=== PATIENT | female | born 1980 | race Caucasian/White ===

== ENCOUNTER 2016-10-24 17:17 | Emergency (ER) | payer BC ==
[2016-10-24 17:27] VITALS: BP 133/86
--- NOTE | 2016-10-24 19:10 | EDM.PDOC ---
ED HPI GENERAL MEDICAL PROBLEM - General Chief Complaint: Eye Problems Stated Complaint: BLURRED VISION Time Seen by Provider: 10/24/16 17:46 Source of Information: Reports: Patient, RN Notes Reviewed - History of Present Illness INITIAL COMMENTS - FREE TEXT/NARRATIVE: 35 or lady comes in with visual difficulty. Dates her vision has been "blurry" yesterday and today, especially today. She did have difficulty with abdominal pain about 5 or 6 days ago, diagnosed with diverticulitis. She's been on an antibiotic and also on prednisone for that. She states she normally does not get headaches. Take with moderately severe yesterday, mild today. 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 There's been no mattering or crusting of either eye. Denies nasal or sinus congestion. No sore throat. She denies major neck discomfort, back pain, chest pain or difficulty breathing. Also no peripheral neurologic type symptoms. Headache Pain Score (Numeric/FACES): 1 - Related Data Allergies Allergy/AdvReac Type Severity Reaction Status Date / Time cefdinir Allergy Rash Verified 04/01/16 21:07 morphine Allergy Rash Verified 04/01/16 21:07 Penicillins Allergy Rash Verified 10/24/16 17:22 Home Meds: Home Meds Lisinopril 10 mg PO DAILY 08/20/15 [History] Esomeprazole Magnesium [Nexium 24Hr] 22.3 mg PO DAILY 04/01/16 [History] ALPRAZolam [Alprazolam] 10/24/16 [History] Ciprofloxacin HCl [Cipro] 10/24/16 [History] FLUoxetine HCl [Fluoxetine HCl] 10/24/16 [History] predniSONE [predniSONE] 10/24/16 [History] Past Medical History HEENT History: Reports: Allergic Rhinitis Cardiovascular History: Reports: Hypertension Respiratory History: Reports: Asthma Gastrointestinal History: Reports: Chronic Constipation, Diverticulosis, GERD, Hiatal Hernia, Other (See Below) Other Gastrointestinal History: bloating, gastric ulcer, nausea/vomiting Genitourinary History: Reports: Renal Calculus [employer] History: Reports: Endometrial Ablation, Musculoskeletal History: Reports: Fracture Other Musculoskeletal History: wrist bilat Neurological History: Reports: Migraines Psychiatric History: Reports: Anxiety, Depression - Past Surgical History Female Surgical History: Reports: Section, Endometrial Ablation Social & Family History - Family History Family Medical History: Noncontributory Cardiac: Reports: CAD, [place] Other Cardiac Family History: grandfather - Tobacco Use Smoking Status *Q: Never Smoker Years of Tobacco use: 10 Month Tobacco Last Used: February 2016 - Caffeine Use Caffeine Use: - Alcohol Use Days Per Week of Alcohol Use: 0 - Recreational Drug Use Recreational Drug Use: No Drug Use in Last 12 Months: No ED ROS GENERAL - Review of Systems Review Of Systems: See Below Constitutional: Denies: Fever, Chills HEENT: Reports: Vision Change (vision has been blurry yesterday and today, worse today). Denies: Sinus Problem, Throat Pain Respiratory: Denies: Shortness of Breath, Wheezing Cardiovascular: Denies: Chest Pain GI/Abdominal: Denies: Abdominal Pain, Nausea, Vomiting Musculoskeletal: Reports: No Symptoms Skin: Reports: No Symptoms. Denies: Rash Neurological: Reports: Dizziness (mild), Headache (mild, off and on for the last few days, worse yesterday) ED EXAM GENERAL W FULL EYE - Physical Exam Exam: See Below General Appearance: Alert, No Apparent Distress Eye Exam: Bilateral Eye: EOMI, PERRL Visual Acuity (R) 20/: 100 Visual Acuity (L) 20/: 50 Eyelids: Bilateral: Normal Appearance Conjunctiva & Sclera: Bilateral: Normal Appearance Cornea Exam: Bilateral: Normal Appearance Extraocular Movements: Bilateral: Intact Pupillary Size: Bilateral: 5 mm Pupillary Reaction: Bilateral: Brisk Anterior Chamber: Bilateral: Normal Appearance Ears: Normal External Exam, Normal TMs Nose: Normal Inspection Throat/Mouth: Normal Inspection, Normal Oropharynx Head: Atraumatic. No: Facial Swelling Neck: Supple, Full Range of Motion Respiratory/Chest: No Respiratory Distress, Lungs Clear, Normal Breath Sounds Cardiovascular: Regular Rate, Rhythm GI/Abdominal: Soft, Non-Tender Back Exam: No: CVA Tenderness (L), CVA Tenderness (R) Neurological: Alert, Oriented Skin Exam: Warm, Dry, Normal Color Course - Vital Signs Last Recorded V/S: Last Vital Signs Temp 98.5 F 10/24/16 17:24 Pulse 120 H 10/24/16 17:24 Resp 18 10/24/16 17:24 BP 133/86 10/24/16 17:24 Pulse Ox 100 10/24/16 17:24 - Orders/Labs/Meds Orders: Active Orders 24 hr Category Date Time Status Head wo Cont [CT] Stat Exams 10/24/16 18:08 Taken Labs: Laboratory Tests 10/24/16 10/24/16 Range/Units 18:35 18:35 WBC 11.80 H (3.98-10.04) K/mm3 RBC 4.20 (3.98-5.22) M/mm3 Hgb 13.1 (11.2-15.7) gm/L Hct 39.4 (34.1-44.9) % MCV 93.8 (79.4-94.8) fl MCH 31.2 (25.6-32.2) pg MCHC 33.2 (32.2-35.5) g/dl RDW Std Deviation 44.1 (36.4-46.3) fL Plt Count 369 (182-369) K/mm3 MPV 9.1 L (9.4-12.3) fl Neut % (Auto) 61.6 (34.0-71.1) % Lymph % (Auto) 28.6 (19.3-51.7) % Elliott % (Auto) 8.1 (4.7-12.5) % Eos % (Auto) 0.3 L (0.7-5.8) Baso % (Auto) 0.3 (0.1-1.2) % Neut # (Auto) 7.28 H (1.56-6.13) K/mm3 Lymph # (Auto) 3.37 (1.18-3.74) K/mm3 Elliott # (Auto) 0.96 H (0.24-0.36) K/mm3 Eos # (Auto) 0.03 L (0.04-0.36) K/mm3 Baso # (Auto) 0.03 (0.01-0.08) K/mm3 Sodium 137 (136-145) mEq/L Potassium 4.0 (3.5-5.1) mEq/L Chloride 100 (98-107) mEq/L Carbon Dioxide 31 (21-32) mEq/L Anion Gap 10.0 (5-15) BUN 18 (7-18) mg/dL Creatinine 0.9 (0.55-1.02) mg/dL Est Cr Clr Drug Dosing TNP Estimated GFR (MDRD) > 60 (>60) mL/min BUN/Creatinine Ratio 20.0 H (14-18) Glucose 93 (74-106) mg/dL Calcium 8.9 (8.5-10.1) mg/dL Total Bilirubin 0.4 (0.2-1.0) mg/dL AST 14 L (15-37) U/L ALT 19 (14-59) U/L Alkaline Phosphatase 90 (46-116) U/L Total Protein 6.9 (6.4-8.2) g/dl Albumin 3.7 (3.4-5.0) g/dl Globulin 3.2 gm/dL Albumin/Globulin Ratio 1.2 (1-2) - Re-Assessments/Exams Free Text/Narrative Re-Assessment/Exam: 10/24/16 19:40. Her labs are normal, head CT looks good, still waiting for Radiologist report, will discharge patient home at this time. She needs a thorough eye exam. Discharge instructions as documented Departure - Departure Time of Disposition: 19:36 Disposition: Home, Self-Care 01 Condition: Fair Clinical Impression: Visual acuity reduced - Discharge Information Referrals: Marichuy Byrne PA [Primary Care Provider] - Forms: ED Department Discharge Additional Instructions: your lab work, neuro exam, head CT all looks good this evening. Try see one of our local Optometrists tomorrow if possible or otherwise as soon as possible early next week. Return to ED as needed if symptoms worsening in any way. - My Orders Last 24 Hours: My Active Orders 10/24/16 18:08 Head wo Cont [CT] Stat - Assessment/Plan Last 24 Hours: My Active Orders 10/24/16 18:08 Head wo Cont [CT] Stat
--- NOTE | 2016-10-25 10:56 | CT ---
Head CT Technique: Multiple axial sections through the brain were obtained. Intravenous contrast was not utilized. Comparison: No previous intracranial imaging. Findings: Ventricles along with basal cisterns and sulci over the convexities are within normal limits for the patient's age. No abnormal parenchymal density is seen. No evidence of intracranial hemorrhage. No midline shift or mass effect seen. Bone window settings were reviewed which show the visualized sinuses to appear clear. No acute calvarial abnormality is seen. Impression: 1. Nothing acute is identified on noncontrast head CT study. Diagnostic code #1 Agree with preliminary report issued by [facility] ([facility] preliminary report dictated on 10/24/16, 8:57 PM Central Time)
== END 2016-10-24 19:50 | disposition home or self-care (01) ==
LOC: JD.ED 17:17
DX: H53.8 Other visual disturbances (principal); J45.909 Unspecified asthma, uncomplicated; K21.9 Gastro-esophageal reflux disease without esophagitis; F41.9 Anxiety disorder, unspecified; F32.9 Major depressive disorder, single episode, unspecified; I10 Essential (primary) hypertension; Z88.0 Allergy status to penicillin; Z87.442 Personal history of urinary calculi; Z88.5 Allergy status to narcotic agent; Z79.899 Other long term (current) drug therapy
CPT/HCPCS: 36415; 70450; 70450-26; 80053; 85025; 99283; 99284-25

== ENCOUNTER 2016-11-03 22:24 | Emergency (ER) | payer BC ==
[2016-11-03 22:42] VITALS: BP 132/97
--- NOTE | 2016-11-03 23:00 | EDM.PDOC ---
ED HPI GENERAL MEDICAL PROBLEM - General Chief Complaint: Eye Problems Stated Complaint: VISION PROBLEMS Time Seen by Provider: 11/03/16 23:00 Source of Information: Reports: Patient, Family History Limitations: Reports: No Limitations - History of Present Illness INITIAL COMMENTS - FREE TEXT/NARRATIVE: The patient presents with decreased vision. This happened on October 24. For no reason she developed blurred vision in both eyes. She also has some pain behind her eyes. She has had migraines before but this is different. She came here to the ER and she was evaluated by Dr Matos. He did a CT of her head that was negative and labs that looked good. She was referred to her adjunct faculty instructor Dr Dubois. He did an exam and could not do a dilated exam at that time. He is having her come back next week. Today she was at home and it got worse for a short time and her daughter saw some funny things with her eyes when she was focusing. The pupil did not react like normal. She denies double vision. She has no fever, chills, cough, congestion, runny nose, chest pain, shortness of breath, abdominal pain, nausea or vomiting. She has had good vision before this. 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 She recently had diverticulitis and she was on antibiotics and steroids. She just finished the meds the day before. Onset: Sudden Duration: Week(s): (1) Quality: Reports: Ache (Mild behind each eye) Severity: Mild Improves with: Reports: None Worsens with: Reports: None Associated Symptoms: Reports: No Other Symptoms Bilateral Eye Pain Score (Numeric/FACES): 4 - Related Data Allergies Allergy/AdvReac Type Severity Reaction Status Date / Time cefdinir Allergy Rash Verified 11/03/16 22:42 morphine Allergy Rash Verified 11/03/16 22:42 Penicillins Allergy Rash Verified 11/03/16 22:42 Home Meds: Home Meds Lisinopril 10 mg PO DAILY 08/20/15 [History] Esomeprazole Magnesium [Nexium 24Hr] 22.3 mg PO DAILY 04/01/16 [History] ALPRAZolam [Alprazolam] 10/24/16 [History] FLUoxetine HCl [Fluoxetine HCl] 1 cap PO DAILY 10/24/16 [History] Past Medical History HEENT History: Reports: Allergic Rhinitis Cardiovascular History: Reports: Hypertension Respiratory History: Reports: Asthma Gastrointestinal History: Reports: Chronic Constipation, Diverticulosis, GERD, Hiatal Hernia, Other (See Below) Other Gastrointestinal History: bloating, gastric ulcer, nausea/vomiting Genitourinary History: Reports: Renal Calculus [employer] History: Reports: Endometrial Ablation, Musculoskeletal History: Reports: Fracture Other Musculoskeletal History: wrist bilat Neurological History: Reports: Migraines Psychiatric History: Reports: Anxiety, Depression - Past Surgical History Female Surgical History: Reports: Section, Endometrial Ablation Social & Family History - Family History Family Medical History: Noncontributory Cardiac: Reports: CAD, [place] Other Cardiac Family History: grandfather - Tobacco Use Smoking Status *Q: Former Smoker Years of Tobacco use: 10 Used Tobacco, but Quit: Yes Month Tobacco Last Used: 12 Second Hand Smoke Exposure: No - Caffeine Use Caffeine Use: Reports: Coffee - Alcohol Use Days Per Week of Alcohol Use: 0 - Recreational Drug Use Recreational Drug Use: No Drug Use in Last 12 Months: No ED ROS GENERAL - Review of Systems Review Of Systems: See Below Constitutional: Reports: No Symptoms HEENT: Reports: Eye Pain, Vision Change Respiratory: Reports: No Symptoms Cardiovascular: Reports: No Symptoms Endocrine: Reports: No Symptoms GI/Abdominal: Reports: No Symptoms : Reports: No Symptoms Musculoskeletal: Reports: No Symptoms ED EXAM GENERAL W FULL EYE - Physical Exam Exam: See Below Exam Limited By: No Limitations General Appearance: Alert, No Apparent Distress Eye Exam: Bilateral Eye: EOMI, Normal Inspection, PERRL, Vision Changes (20/70 in each eye) Visual Acuity (R) 20/: 70 Visual Acuity (L) 20/: 70 With Correction: No IOP (R) in mmH IOP (L) in mmH Eyelids: Bilateral: Normal Appearance Conjunctiva & Sclera: Bilateral: Normal Appearance Cornea Exam: Bilateral: Normal Appearance Extraocular Movements: Bilateral: Intact Pupillary Size: Bilateral: 4 mm Pupillary Reaction: Bilateral: Brisk Anterior Chamber: Bilateral: Normal Appearance Posterior Chamber: Bilateral: Normal Funduscopic Ears: Normal External Exam Nose: Normal Inspection Head: Atraumatic, Normocephalic Neck: Normal Inspection Course - Vital Signs Last Recorded V/S: Last Vital Signs Temp 97.4 F 11/03/16 22:39 Pulse 106 H 11/03/16 22:39 Resp 18 11/03/16 22:39 BP 132/97 H 11/03/16 22:39 Pulse Ox 98 11/03/16 22:39 - Re-Assessments/Exams Free Text/Narrative Re-Assessment/Exam: 11/04/16 03:01 I examined the results from her last visit and everything looked good. Her exam today was all good other then she has decreased visual acuity. I have ordered an MRI of her brain to rule out MS as a cause. She has a dilated eye exam ordered for Friday. Departure - Departure Time of Disposition: 20:00 Disposition: Home, Self-Care 01 Condition: Good Clinical Impression: Visual acuity reduced, Vision changes - Discharge Information Referrals: Marichuy Byrne PA [Primary Care Provider] - Forms: ED Department Discharge Additional Instructions: Our radiology department will call you with a day and time for the MRI. Follow up with Dr Andre and with Marichuy Byrne after the MRI for results. Please return if you are worse.
== END 2016-11-04 00:38 | disposition home or self-care (01) ==
LOC: JD.ED 22:24
DX: H53.8 Other visual disturbances (principal); I10 Essential (primary) hypertension; J45.909 Unspecified asthma, uncomplicated; K21.9 Gastro-esophageal reflux disease without esophagitis; Z88.5 Allergy status to narcotic agent; Z88.8 Allergy status to other drugs, medicaments and biological substances; Z88.0 Allergy status to penicillin; Z79.899 Other long term (current) drug therapy; Z87.442 Personal history of urinary calculi; Z87.891 Personal history of nicotine dependence
CPT/HCPCS: 99283; 99284

== ENCOUNTER 2016-11-20 07:26 | Day surgery (SDC) | payer BC ==
[~2016-11-20 07:26] MED LIST: Lactated Ringers 1,000 ML IV SCH; Lidocaine 1%/Sod Bicarbonate in NS 8.4% 1 ML Syringe PRN; Sodium Chloride 0.9% 10 ML Syringe FLUSH PRN
[2016-11-20] MEDS ORDERED: Propofol 200 MG/20 ML SDV ONE ×2 (07:34→09:05)
[2016-11-20] MEDS ORDERED: fentaNYL 100 MCG/2 ML SDV ONE (07:34)
--- NOTE | 2016-11-20 07:49 | PCM.PREANE ---
Preanesthetic Assessment - Procedure Proposed Procedure: Diagnostic Colonoscopy - Anesthesia/Transfusion/Family Hx Anesthesia History: Prior Anesthesia Without Reaction Type of Anesthesia Reaction: Excessive Nausea/Vomiting Family History of Anesthesia Reaction: No Transfusion History: No Prior Transfusion(s) - Review of Systems General: No Symptoms Pulmonary: Cough (seasonal allergies ) Cardiovascular: Other (HTN) Gastrointestinal: Other (GERD) Neurological: No Symptoms Other: Reports: Easy Bleeding, Easy Bruising, Depression - Physical Assessment NPO Status Date: 11/19/16 NPO Status Time: 21:00 Pulse: 99 O2 Sat by Pulse Oximetry: 97 Respiratory Rate: 16 Blood Pressure: 118/80 Temperature: 36.5 C Height: 1.57 m Weight: 68.039 kg ASA Class: 2 Mental Status: Alert & Oriented x3 Airway Class: Mallampati = 2 Dentition: Reports: Normal Dentition Thyro-Mental Finger Breadths: 3 Mouth Opening Finger Breadths: 3 ROM/Head Extension: Full Lungs: Clear to Auscultation, Normal Respiratory Effort Cardiovascular: Regular Rate, Regular Rhythm - Allergies Allergies/Adverse Reactions: Allergies Allergy/AdvReac Type Severity Reaction Status Date / Time cefdinir Allergy Rash Verified 11/03/16 22:42 morphine Allergy Rash Verified 11/03/16 22:42 Penicillins Allergy Rash Verified 11/03/16 22:42 - Blood Blood Available: No Product(s) Available: None - Anesthesia Plan Pre-Op Medication Ordered: None - Acknowledgements Anesthesia Type Planned: MAC Pt an Appropriate Candidate for the Planned Anesthesia: Yes Alternatives and Risks of Anesthesia Discussed w Pt/Guardian: Yes Pt/Guardian Understands and Agrees with Anesthesia Plan: Yes PreAnesthesia Questionnaire HEENT History: Reports: Allergic Rhinitis Cardiovascular History: Reports: Hypertension Respiratory History: Reports: Asthma Gastrointestinal History: Reports: Chronic Constipation, Diverticulosis, GERD, Hiatal Hernia, Other (See Below) Other Gastrointestinal History: bloating, gastric ulcer, nausea/vomiting Genitourinary History: Reports: Renal Calculus [employer]IO [employer] History: Reports: Endometrial Ablation, Musculoskeletal History: Reports: Fracture Other Musculoskeletal History: wrist bilat Neurological History: Reports: Migraines Psychiatric History: Reports: Anxiety, Depression - Past Surgical History Female Surgical History: Reports: Section, Endometrial Ablation - SUBSTANCE USE Smoking Status *Q: Former Smoker Tobacco Use Within Last Twelve Months: Cigarettes Second Hand Smoke Exposure: No Days Per Week of Alcohol Use: 0 Recreational Drug Use History: No - HOME MEDS Home Medications: Home Meds Lisinopril 10 mg PO DAILY 08/20/15 [History] Esomeprazole Magnesium [Nexium 24Hr] 22.3 mg PO DAILY 04/01/16 [History] ALPRAZolam [Alprazolam] 10/24/16 [History] FLUoxetine HCl [Fluoxetine HCl] 1 cap PO DAILY 10/24/16 [History] - CURRENT (IN HOUSE) MEDS Current Meds: Current Medications Lactated Ringer's (Ringers, Lactated) 1,000 mls @ 125 mls/hr IV ASDIRECTED ELIZABETH Stop: 11/20/16 23:00 Lidocaine/Sodium Bicarbonate (Buffered Lidocaine 1% In Ns 8.4%) 0.25 ml .XX ONETIME PRN PRN Reason: Prior to IV Start Stop: 11/20/16 18:00 Sodium Chloride (Saline Flush) 10 ml FLUSH ASDIRECTED PRN PRN Reason: Keep Vein Open Stop: 11/20/16 18:00 Discontinued Medications Fentanyl (Sublimaze) Confirm Administered Dose 100 mcg .ROUTE .STK-MED ONE Stop: 11/20/16 07:35 Propofol (Diprivan 20 Ml) Confirm Administered Dose 200 mg .ROUTE .STK-MED ONE Stop: 11/20/16 07:35
--- NOTE | 2016-11-20 09:08 | PCM48HPAN ---
Post Anesthesia Note - EVALUATION WITHIN 48HRS OF ANESTHETIC Vital Signs in Normal Range: Yes Patient Participated in Evaluation: Yes Respiratory Function Stable: Yes Airway Patent: Yes Cardiovascular Function Stable: Yes Hydration Status Stable: Yes Pain Control Satisfactory: Yes Nausea and Vomiting Control Satisfactory: Yes Mental Status Recovered: Yes
--- NOTE | 2016-11-20 09:08 | PCM.OPNOTE ---
- General Post-Op/Procedure Note Date of Surgery/Procedure: 11/20/16 Operative Procedure(s): Colonoscopy with random ileal and rectal biopsy using cold forceps 2 each Findings: Sigmoid diverticulosis but otherwise normal endoscopic examination Pre Op Diagnosis: Change in bowel habits with a history of diverticulitis Post-Op Diagnosis: 1. Sigmoid diverticulosis Anesthesia Technique: MAC, Moderate Sedation Primary Surgeon: Almas Moss Pathology: Ileal and rectal biopsies 2 each EBL in mLs: 0 Complications: None Condition: Good Free Text/Narrative:: After adequate IV sedation and analgesia was obtained with monitoring the patient was placed on here left side. Perianal inspection and digital rectal examination were unremarkable.. A lubricated colonoscope was inserted into the rectum and advanced to the cecum without difficulty. The bowel preparation was excellent. The terminal ileum was intubated with the colonoscope and was endoscopically normal. Given her history I biopsied the ileum 2 with cold forceps for histologic evaluation. The cecum, ascending colon, transverse and descending colons, were endoscopically normal with no mass lesion or inflammatory changes seen. The sigmoid had uncomplicated diverticuli. They were small. The rectum was endoscopically normal in both views. Given her history of frequent episodes of alternating constipation and diarrhea I biopsied the rectum in 2 areas randomly for histologic review as well. Photographs were taken for the patient and for the medical record. Air was removed as I finished the procedure which she tolerated well.
[2016-11-20 09:11] VITALS: BP 118/79
== END 2016-11-20 09:38 | disposition home or self-care (01) ==
LOC: JD.SJHSC 07:26
PROVIDERS: ATTEND Surgery
DX: K57.30 Diverticulosis of large intestine without perforation or abscess without bleeding (principal); I10 Essential (primary) hypertension; F41.1 Generalized anxiety disorder; K21.9 Gastro-esophageal reflux disease without esophagitis; K58.0 Irritable bowel syndrome with diarrhea; J45.909 Unspecified asthma, uncomplicated; Z87.442 Personal history of urinary calculi; Z87.891 Personal history of nicotine dependence; Z88.0 Allergy status to penicillin; Z88.1 Allergy status to other antibiotic agents; Z88.5 Allergy status to narcotic agent; Z88.8 Allergy status to other drugs, medicaments and biological substances; Z79.899 Other long term (current) drug therapy; Z98.890 Other specified postprocedural states
CPT/HCPCS: 45380; J3010; J7120; 00810; J2704

== ENCOUNTER 2016-11-23 11:09 | Emergency (ER) | payer BC ==
[2016-11-23 11:24] VITALS: BP 136/85
[2016-11-23] MEDS ORDERED: Lactated Ringers 1,000 ML IV ONE (11:58)
[2016-11-23] MEDS ORDERED: Ondansetron 4 MG/2 ML SDV IVPUSH ONE (11:58)
[2016-11-23] MEDS ORDERED: Ketorolac 30 MG/ML SDV IVPUSH ONE (11:58)
[2016-11-23] MEDS ORDERED: Sodium Chloride 0.9% 10 ML Syringe FLUSH PRN (11:59)
--- NOTE | 2016-11-23 12:41 | EDM.PDOC ---
ED HPI GENERAL MEDICAL PROBLEM - General Chief Complaint: Gastrointestinal Problem Stated Complaint: CHILLS AND VOMITING Time Seen by Provider: 11/23/16 11:45 Source of Information: Reports: Patient, Old Records (old ER visits and clinic records) History Limitations: Reports: No Limitations - History of Present Illness INITIAL COMMENTS - FREE TEXT/NARRATIVE: 35 year old female presents for evaluation and treatment of abdominal pain. Patient reports she had a colonoscopy done on Friday. Since then she has had LLQ abdominal pain and discomfort. Reports the pain is a 1 or 2 out of 10. Reports she has had abdominal problems for several years. Has had multiple studies including CT scans done with no known etiology as of yet. Unsure if she has had any fevers as she has not taken her temperature. Reports associated dizziness, chills, diarrhea, nausea and vomiting. Reports 2 episodes of diarrhea today. States she has appreciated blood tinged to the stools. She did have biopsies taken during the colonoscopy. Reports 2-3 episodes of vomiting today. Denies any recent travel. Patient reports she has been ill over the last week with cold symptoms. Reports a cough, sore throat and post nasal drip. Denies any chance of . Patient has had an endometrial ablation. The patient also talks about her recent vision changes. States recently her vision has become blurry. She was seen in the ER for this and had an MRI done. No abnormalities were found. She has since seen optometry. She now requires glasses. Reports she can hardly see without them. Due to the increased urinary frequency, dizziness and blurry vision she questions if she has diabetes. She has never been checked as far as she knows. Left Abdomen Pain Score (Numeric/FACES): 2 - Related Data Allergies Allergy/AdvReac Type Severity Reaction Status Date / Time cefdinir Allergy Rash Verified 11/20/16 08:04 morphine Allergy Rash Verified 11/20/16 08:04 Penicillins Allergy Rash Verified 11/20/16 08:04 Home Meds: Home Meds Lisinopril 10 mg PO DAILY 08/20/15 [History] ALPRAZolam [Alprazolam] 0.25 mg PO ASDIRECTED 10/24/16 [History] Vortioxetine Hydrobromide [Trintellix] 10 mg PO DAILY 11/23/16 [History] Past Medical History HEENT History: Reports: Allergic Rhinitis Cardiovascular History: Reports: Hypertension Respiratory History: Reports: Asthma Gastrointestinal History: Reports: Chronic Constipation, Diverticulosis, GERD, Hiatal Hernia, Other (See Below) Other Gastrointestinal History: bloating, gastric ulcer, nausea/vomiting Genitourinary History: Reports: Renal Calculus [employer] History: Reports: Endometrial Ablation, Musculoskeletal History: Reports: Fracture Other Musculoskeletal History: wrist bilat Neurological History: Reports: Migraines Psychiatric History: Reports: Anxiety, Depression - Past Surgical History Female Surgical History: Reports: Section, Endometrial Ablation Social & Family History - Family History Family Medical History: Noncontributory Cardiac: Reports: CAD, [place] Other Cardiac Family History: grandfather - Tobacco Use Smoking Status *Q: Never Smoker Years of Tobacco use: 10 Used Tobacco, but Quit: Yes Month Tobacco Last Used: 12 Second Hand Smoke Exposure: No - Caffeine Use Caffeine Use: Reports: Coffee - Alcohol Use Days Per Week of Alcohol Use: 0 - Recreational Drug Use Recreational Drug Use: No Drug Use in Last 12 Months: No ED ROS GENERAL - Review of Systems Review Of Systems: See Below Constitutional: Reports: Chills, Malaise, Diaphoresis, Decreased Appetite. Denies: Fever (unsure; has not taken temp) HEENT: Reports: Throat Pain, Vision Change (reports reent blurry vision), Other (reports post nasal drip) Respiratory: Reports: Cough GI/Abdominal: Reports: Abdominal Pain (LLQ), Diarrhea (2 episodes today), Decreased Appetite, Hematochezia, Nausea, Vomiting. Denies: Melena : Reports: Frequency. Denies: Dysuria ED EXAM, GI/ABD - Physical Exam Exam: See Below Exam Limited By: No Limitations General Appearance: Alert, WD/WN, No Apparent Distress, Anxious Ears: Normal External Exam, Normal Canal, Hearing Grossly Normal, Normal TMs Nose: Normal Inspection Throat/Mouth: Normal Inspection, Normal Lips, Normal Voice, No Airway Compromise Respiratory/Chest: No Respiratory Distress, Lungs Clear, Normal Breath Sounds Cardiovascular: Normal Peripheral Pulses, Regular Rate, Rhythm, No Murmur GI/Abdominal Exam: Normal Bowel Sounds, Soft, Non-Tender Neurological: Alert, Oriented, Normal Cognition Psychiatric: Normal Affect, Normal Mood Skin Exam: Warm, Dry, Normal Color Course - Vital Signs Last Recorded V/S: Last Vital Signs Temp 36.3 C 11/23/16 11:22 Pulse 120 H 11/23/16 11:22 Resp 20 11/23/16 11:22 BP 136/85 11/23/16 11:22 Pulse Ox 100 11/23/16 11:22 - Orders/Labs/Meds Labs: Laboratory Tests 11/23/16 11/23/16 11/23/16 Range/Units 12:37 12:37 12:37 WBC 8.64 (3.98-10.04) K/mm3 RBC 4.13 (3.98-5.22) M/mm3 Hgb 12.9 (11.2-15.7) gm/L Hct 38.4 (34.1-44.9) % MCV 93.0 (79.4-94.8) fl MCH 31.2 (25.6-32.2) pg MCHC 33.6 (32.2-35.5) g/dl RDW Std Deviation 43.3 (36.4-46.3) fL Plt Count 282 (182-369) K/mm3 MPV 9.4 (9.4-12.3) fl Neutrophils % (Manual) 85 H (40-60) % Band Neutrophils % 0 (0-10) % Lymphocytes % (Manual) 7 L (20-40) % Atypical Lymphs % 0 % Monocytes % (Manual) 7 (2-10) % Eosinophils % (Manual) 0 L (0.7-5.8) % Basophils % (Manual) 1 (0.1-1.2) Platelet Estimate Adequate Plt Morphology Comment Normal Polychromasia 1+ slight Stomatocytes Few RBC Morph Comment Not Reportable Sodium 139 (136-145) mEq/L Potassium 3.7 (3.5-5.1) mEq/L Chloride 103 (98-107) mEq/L Carbon Dioxide 27 (21-32) mEq/L Anion Gap 12.7 (5-15) BUN 6 L (7-18) mg/dL Creatinine 0.7 (0.55-1.02) mg/dL Est Cr Clr Drug Dosing 87.87 mL/min Estimated GFR (MDRD) > 60 (>60) mL/min BUN/Creatinine Ratio 8.6 L (14-18) Glucose 98 (74-106) mg/dL Hemoglobin A1c 5.50 (4.50-6.20) % Calcium 8.8 (8.5-10.1) mg/dL Total Bilirubin 0.6 (0.2-1.0) mg/dL AST 16 (15-37) U/L ALT 19 (14-59) U/L Alkaline Phosphatase 78 (46-116) U/L Total Protein 7.0 (6.4-8.2) g/dl Albumin 3.6 (3.4-5.0) g/dl Globulin 3.4 gm/dL Albumin/Globulin Ratio 1.1 (1-2) TSH 3rd Generation 0.813 (0.358-3.74) uIU/mL Urine Color (Yellow) Urine Appearance (Clear) Urine pH (5.0-8.0) Ur Specific [place] (1.005-1.030) Urine Protein (Negative) Urine Glucose (UA) (Negative) Urine Ketones (Negative) Urine Occult Blood (Negative) Urine Nitrite (Negative) Urine Bilirubin (Negative) Urine Urobilinogen (0.2-1.0) Ur Leukocyte Esterase (Negative) Urine RBC (0-5) /hpf Urine WBC (0-5) /hpf Ur Epithelial Cells (0-5) /hpf Urine Bacteria (FEW) /hpf Urine Mucus (FEW) /hpf 11/23/ Range/Units 12:45 WBC (3.98-10.04) K/mm3 RBC (3.98-5.22) M/mm3 Hgb (11.2-15.7) gm/L Hct (34.1-44.9) % MCV (79.4-94.8) fl MCH (25.6-32.2) pg MCHC (32.2-35.5) g/dl RDW Std Deviation (36.4-46.3) fL Plt Count (182-369) K/mm3 MPV (9.4-12.3) fl Neutrophils % (Manual) (40-60) % Band Neutrophils % (0-10) % Lymphocytes % (Manual) (20-40) % Atypical Lymphs % % Monocytes % (Manual) (2-10) % Eosinophils % (Manual) (0.7-5.8) % Basophils % (Manual) (0.1-1.2) Platelet Estimate Plt Morphology Comment Polychromasia Stomatocytes RBC Morph Comment Sodium (136-145) mEq/L Potassium (3.5-5.1) mEq/L Chloride (98-107) mEq/L Carbon Dioxide (21-32) mEq/L Anion Gap (5-15) BUN (7-18) mg/dL Creatinine (0.55-1.02) mg/dL Est Cr Clr Drug Dosing mL/min Estimated GFR (MDRD) (>60) mL/min BUN/Creatinine Ratio (14-18) Glucose (74-106) mg/dL Hemoglobin A1c (4.50-6.20) % Calcium (8.5-10.1) mg/dL Total Bilirubin (0.2-1.0) mg/dL AST (15-37) U/L ALT (14-59) U/L Alkaline Phosphatase (46-116) U/L Total Protein (6.4-8.2) g/dl Albumin (3.4-5.0) g/dl Globulin gm/dL Albumin/Globulin Ratio (1-2) TSH 3rd Generation (0.358-3.74) uIU/mL Urine Color Yellow (Yellow) Urine Appearance Clear (Clear) Urine pH 7.0 (5.0-8.0) Ur Specific [place] 1.020 (1.005-1.030) Urine Protein Negative (Negative) Urine Glucose (UA) Negative (Negative) Urine Ketones Trace H (Negative) Urine Occult Blood Trace-lysed H (Negative) Urine Nitrite Negative (Negative) Urine Bilirubin Negative (Negative) Urine Urobilinogen 0.2 (0.2-1.0) Ur Leukocyte Esterase Negative (Negative) Urine RBC 0-5 (0-5) /hpf Urine WBC Not seen (0-5) /hpf Ur Epithelial Cells 0-5 (0-5) /hpf Urine Bacteria Rare (FEW) /hpf Urine Mucus Not seen (FEW) /hpf Meds: Medications Discontinued Medications Generic Name Dose Route Start Last Admin Trade Name Freq PRN Reason Stop Dose Admin Lactated Ringer's 1,000 mls @ 999 mls/hr 11/23/16 11:58 11/23/16 12:06 Ringers, Lactated IV 11/23/16 12:58 999 mls/hr .BOLUS ONE Administration Ketorolac Tromethamine 30 mg 11/23/16 11:58 11/23/16 12:05 Toradol IVPUSH 11/23/16 11:59 30 mg ONETIME ONE Administration Ondansetron HCl 4 mg 11/23/16 11:58 11/23/16 12:05 Zofran IVPUSH 11/23/16 11:59 4 mg ONETIME ONE Administration Sodium Chloride 10 ml 11/23/16 11:59 11/23/16 12:07 Saline Flush FLUSH 10 ml ASDIRECTED PRN Administration Keep Vein Open - Radiology Interpretation Free Text/Narrative:: chest xray shows no acute intrathoracic process. flat and upright abdominal xray shows no acute findings. Normal bowel gas pattern. - Re-Assessments/Exams Free Text/Narrative Re-Assessment/Exam: 11/23/16 14:38 I reviewed the x-ray and lab results with the patient. I believe her current abdominal discomfort and diarrhea are likely from her recent colonscopy. These should resolve with time. I will have her follow-up wiht her PCP for her other complaints. She may require a referral to GI and neurology. pain improved after toradol. We will discharge her home at this time. Discharge instructions as documented. Departure - Departure Time of Disposition: 14:38 Disposition: Home, Self-Care 01 Condition: Fair Clinical Impression: Status post colonoscopy, Viral upper respiratory illness - Discharge Information Instructions: Colonoscopy, Care After, [id number], Upper Respiratory Infection, Adult, [id number] Referrals: Marichuy Byrne PA [Primary Care Provider] - Forms: ED Department Discharge Additional Instructions: [id number] Tylenol or Motrin as needed for pain relief. Rest. Make sure you drinking plenty of fluids. Expect the cold symptoms to last about 1 week. Should they persist beyond 1 week follow-up with your primary care provider. if you continue to have discomfort in the left lower quadrant, contact your surgeon early this week. Please return to the ER if your symptoms change or worsen.
--- NOTE | 2016-11-24 19:58 | CR ---
Abdomen: Supine and upright views of the abdomen were obtained. Gas noted within small bowel and colon. Slight air-fluid levels are seen within small bowel. No free air is seen. Minimal scoliosis is noted within the spine. No abnormal calcifications or soft tissue abnormality is identified. Impression: 1. Slightly prominent gas within small bowel. Gas noted throughout the colon as well. Difficult to exclude mild ileus or even early developing small bowel obstruction if patient has correlating symptoms. Findings may also represent increased swallowed gas. 2. Other incidental findings. Diagnostic code #3
--- NOTE | 2016-11-24 19:58 | CR ---
Chest: Two views of the chest were obtained. Comparison: Previous chest x-ray of 02/16/16. Heart size and mediastinum are normal. Lungs are clear. Bony structures are within normal limits for the patient's age. Impression: 1. Nothing acute is identified on two-view chest x-ray. No significant change is seen from prior chest x-ray. Diagnostic code #1
== END 2016-11-23 14:57 | disposition home or self-care (01) ==
LOC: JD.ED 11:09
DX: J06.9 Acute upper respiratory infection, unspecified (principal); R10.32 Left lower quadrant pain; I10 Essential (primary) hypertension; J45.909 Unspecified asthma, uncomplicated; Z98.890 Other specified postprocedural states; Z88.5 Allergy status to narcotic agent; Z88.0 Allergy status to penicillin; Z79.899 Other long term (current) drug therapy
CPT/HCPCS: 36415; 71020; 74020; 80053; 81001; 83036; 84443; 85025; 96361; 96374; 96375; 99284; J1885; J2405; J7050; J7120; 99283

== ENCOUNTER 2016-12-28 17:41 | Emergency (ER) | payer BC ==
--- NOTE | 2016-12-28 18:12 | EDM.PDOC ---
ED HPI GENERAL MEDICAL PROBLEM - General Chief Complaint: Genitourinary Problem Stated Complaint: BACK AND ABDOMINAL PAIN Time Seen by Provider: 12/28/16 18:12 - History of Present Illness INITIAL COMMENTS - FREE TEXT/NARRATIVE: 36-year-old female presents emergency room with right-sided abdominal pain. Patient has had this pain for about a week and this is progressively getting worse and reminds her very much of passing a kidney stone patient has had multiple kidney stones some requiring lithotripsy in the past. Her abdominal pain is on the right and somewhat vague it moves around at times radiates into the groin. She has not had any burning or frequency with urination. She's felt a little bloated in the past she had some nausea vomiting a few days ago and was restarted on her reflux medication. Right Flank Pain Score (Numeric/FACES): 6 - Related Data Allergies Allergy/AdvReac Type Severity Reaction Status Date / Time cefdinir Allergy Rash Verified 12/28/16 18:08 morphine Allergy Rash Verified 12/28/16 18:08 Penicillins Allergy Rash Verified 12/28/16 18:08 Home Meds: Home Meds Lisinopril 10 mg PO DAILY 08/20/15 [History] Vortioxetine Hydrobromide [Trintellix] 10 mg PO DAILY 11/23/16 [History] Acetaminophen/HYDROcodone [[place] 325-5 MG] 1 - 2 tab PO Q6H PRN #20 tablet 12/28 [Rx] Esomeprazole Magnesium [Nexium] 20 mg PO DAILY 12/28/16 [History] Ondansetron [Zofran ODT] 4 mg PO Q6H PRN #10 tab.dis 12/28/16 [Rx] Sucralfate [Carafate] 1 gm PO QIDACANDBED 12/28/16 [History] Tamsulosin HCl [Flomax] 0.4 mg PO Q24H #7 cap.er.24h 12/28/16 [Rx] Past Medical History HEENT History: Reports: Allergic Rhinitis Cardiovascular History: Reports: Hypertension Respiratory History: Reports: Asthma Gastrointestinal History: Reports: Chronic Constipation, Diverticulosis, GERD, Hiatal Hernia, Other (See Below) Other Gastrointestinal History: bloating, gastric ulcer, nausea/vomiting Genitourinary History: Reports: Renal Calculus LABEL SEWER History: Reports: Endometrial Ablation, Musculoskeletal History: Reports: Fracture Other Musculoskeletal History: wrist bilat Neurological History: Reports: Migraines Psychiatric History: Reports: Anxiety, Depression - Past Surgical History Female Surgical History: Reports: Section, Endometrial Ablation Social & Family History - Family History Family Medical History: Noncontributory Cardiac: Reports: CAD, [place] Other Cardiac Family History: grandfather - Tobacco Use Smoking Status *Q: Never Smoker Years of Tobacco use: 10 Used Tobacco, but Quit: Yes Month Tobacco Last Used: 12 Second Hand Smoke Exposure: No - Caffeine Use Caffeine Use: Reports: Coffee - Alcohol Use Days Per Week of Alcohol Use: 0 - Recreational Drug Use Recreational Drug Use: No Drug Use in Last 12 Months: No ED ROS GENERAL - Review of Systems Review Of Systems: See Below Constitutional: Reports: No Symptoms HEENT: Reports: No Symptoms Respiratory: Reports: No Symptoms Cardiovascular: Reports: No Symptoms GI/Abdominal: Reports: Abdominal Pain, Nausea. Denies: Constipation, Diarrhea : Reports: Flank Pain. Denies: Discharge, Dysuria, Frequency, Urgency ED EXAM, GI/ABD - Physical Exam Exam: See Below Exam Limited By: No Limitations General Appearance: Alert, No Apparent Distress Head: Atraumatic Neck: Normal Inspection, Supple, Non-Tender, Full Range of Motion. No: Lymphadenopathy (L), Lymphadenopathy (R) Respiratory/Chest: No Respiratory Distress, Lungs Clear, Normal Breath Sounds Cardiovascular: Regular Rate, Rhythm, No Edema, No Murmur GI/Abdominal Exam: Normal Bowel Sounds, Soft, Other (History is vague right sided discomfort however this is not aggravated with palpation no rigidity rebound or guarding noted) Back Exam: Normal Inspection. No: CVA Tenderness (L), CVA Tenderness (R) Extremities: Normal Inspection, No Pedal Edema Course - Vital Signs Last Recorded V/S: Last Vital Signs Temp 36.4 C 12/28/16 18:10 Pulse 100 12/28/16 18:10 Resp BP 137/95 H 12/28/16 18:10 Pulse Ox 100 12/28/16 18:10 - Orders/Labs/Meds Orders: Active Orders 24 hr Category Date Time Status Lactated Ringers [Ringers, Lactated] 1,000 ml Med 12/28/16 18:30 Active IV ASDIRECTED Medication Orders Lactated Ringer's (Ringers, Lactated) 1,000 mls @ 150 mls/hr IV ASDIRECTED ELIZABETH Last Admin: 12/28/16 18:47 Dose: 150 mls/hr Labs: Laboratory Tests 12/28/16 12/28/16 12/28/16 Range/Units 18:25 18:40 18:40 WBC 7.05 (3.98-10.04) K/mm3 RBC 4.28 (3.98-5.22) M/mm3 Hgb 13.4 (11.2-15.7) gm/L Hct 40.3 (34.1-44.9) % MCV 94.2 (79.4-94.8) fl MCH 31.3 (25.6-32.2) pg MCHC 33.3 (32.2-35.5) g/dl RDW Std Deviation 42.8 (36.4-46.3) fL Plt Count 362 (182-369) K/mm3 MPV 9.1 L (9.4-12.3) fl Neutrophils % (Manual) 50 (40-60) % Band Neutrophils % 0 (0-10) % Lymphocytes % (Manual) 48 H (20-40) % Atypical Lymphs % 0 % Monocytes % (Manual) 1 L (2-10) % Eosinophils % (Manual) 1 (0.7-5.8) % Basophils % (Manual) 0 L (0.1-1.2) Platelet Estimate Adequate RBC Morph Comment Normal Sodium 144 (136-145) mEq/L Potassium 4.3 (3.5-5.1) mEq/L Chloride 105 (98-107) mEq/L Carbon Dioxide 30 (21-32) mEq/L Anion Gap 13.3 (5-15) BUN 15 (7-18) mg/dL Creatinine 0.8 (0.55-1.02) mg/dL Est Cr Clr Drug Dosing 76.15 mL/min Estimated GFR (MDRD) > 60 (>60) mL/min BUN/Creatinine Ratio 18.8 H (14-18) Glucose 92 (74-106) mg/dL Calcium 9.1 (8.5-10.1) mg/dL Urine Color Yellow (Yellow) Urine Appearance Clear (Clear) Urine pH 7.0 (5.0-8.0) Ur Specific [place] 1.025 (1.005-1.030) Urine Protein Negative (Negative) Urine Glucose (UA) Negative (Negative) Urine Ketones Negative (Negative) Urine Occult Blood Trace-intact H (Negative) Urine Nitrite Negative (Negative) Urine Bilirubin Negative (Negative) Urine Urobilinogen 0.2 (0.2-1.0) Ur Leukocyte Esterase Negative (Negative) Urine RBC 0-5 (0-5) /hpf Urine WBC 0-5 (0-5) /hpf Ur Epithelial Cells 0-5 (0-5) /hpf Urine Bacteria Occasional (FEW) /hpf Urine Mucus Not seen (FEW) /hpf Meds: Medications Generic Name Dose Route Start Last Admin Trade Name Freq PRN Reason Stop Dose Admin Lactated Ringer's 1,000 mls @ 150 mls/hr 12/28/16 18:30 12/28/16 18:47 Ringers, Lactated IV 150 mls/hr ASDIRECTED ELIZABETH Administration Discontinued Medications Generic Name Dose Route Start Last Admin Trade Name Freq PRN Reason Stop Dose Admin Hydrocodone Bitart/Acetaminophen 1 tab 12/28/16 19:24 12/28/16 19:32 [place] 325-5 Mg PO 12/28/16 19:25 1 tab ONETIME ONE Administration Fentanyl 50 mcg 12/28/16 19:18 12/28/16 19:23 Sublimaze IVPUSH 12/28/16 19:19 50 mcg ONETIME ONE Administration Ondansetron HCl 4 mg 12/28/16 19:19 12/28/16 19:22 Zofran IVPUSH 12/28/16 19:20 4 mg ONETIME ONE Administration - Re-Assessments/Exams Free Text/Narrative Re-Assessment/Exam: 12/28/16 20:08 Urinalysis is not suggestive of infectious process she looks a little dry on her chemistries creatinine well within normal range. She'll be treated empirically for kidney stone. Departure - Departure Time of Disposition: 19:52 Disposition: Home, Self-Care 01 Clinical Impression: Kidney stone on right side Clinical Impression: (Ruled Out): Abdominal pain - Discharge Information Prescriptions: Acetaminophen/HYDROcodone [[place] 325-5 MG] 1 - 2 tab PO Q6H PRN #20 tablet PRN Reason: Abdominal Pain Ondansetron [Zofran ODT] 4 mg PO Q6H PRN #10 tab.dis PRN Reason: Nausea/Vomiting Tamsulosin HCl [Flomax] 0.4 mg PO Q24H #7 cap.er.24h Instructions: Kidney Stones, [id number] Referrals: Marichuy Byrne PA [Primary Care Provider] - Forms: ED Department Discharge Additional Instructions: Return to the emergency room with any questions problems or worsening symptoms. It is suspected that you passing another kidney stone on the right. You have been started on Flomax to facilitate the passage of the stone. You been started on [place] for pain use one or 2 every 6 hours as needed. As we discussed this can cause constipation start Jessica lax and if you need to take magnesium citrate to prevent constipation. You have been given Zofran use this as needed for nausea and vomiting. Follow-up in the clinic on Friday or for recheck. Strain your urine is directed and take the stone to the clinic if you can collect it. - My Orders Last 24 Hours: My Active Orders 12/28/16 18:30 Lactated Ringers [Ringers, Lactated] 1,000 ml IV ASDIRECTED - Assessment/Plan Last 24 Hours: My Active Orders 12/28/16 18:30 Lactated Ringers [Ringers, Lactated] 1,000 ml IV ASDIRECTED
[2016-12-28 18:13] VITALS: BP 137/95
[2016-12-28] MEDS ORDERED: Lactated Ringers 1,000 ML IV SCH (18:30)
[2016-12-28] MEDS ORDERED: fentaNYL 100 MCG/2 ML SDV IVPUSH ONE (19:18)
[2016-12-28] MEDS ORDERED: Ondansetron 4 MG/2 ML SDV IVPUSH ONE (19:19)
[2016-12-28] MEDS ORDERED: Acetaminophen/HYDROcodone 325-5 MG Tab PO ONE (19:24)
== END 2016-12-28 20:04 | disposition home or self-care (01) ==
LOC: JD.ED 17:41
DX: N20.0 Calculus of kidney (principal); I10 Essential (primary) hypertension; K21.9 Gastro-esophageal reflux disease without esophagitis; F32.9 Major depressive disorder, single episode, unspecified; Z87.891 Personal history of nicotine dependence; Z79.899 Other long term (current) drug therapy; Z88.0 Allergy status to penicillin; Z88.5 Allergy status to narcotic agent; Z88.1 Allergy status to other antibiotic agents
CPT/HCPCS: 36415; 80048; 81001; 85025; 96361; 96374; 96375; 99284; A9270; J2405; J3010; J7120

== ENCOUNTER 2017-04-19 16:14 | Emergency (ER) | payer BC ==
[2017-04-19] MEDS ORDERED: predniSONE 20 MG Tab PO ONE (16:54)
[2017-04-19] MEDS ORDERED: Loratadine 10 MG Tab PO ONE (16:55)
[2017-04-19] MEDS ORDERED: Famotidine 20 MG Tab PO ONE (16:55)
--- NOTE | 2017-04-19 17:11 | EDM.PDOC ---
ED HPI GENERAL MEDICAL PROBLEM - General Chief Complaint: Allergic Reaction Stated Complaint: ALLERGIC REACTION TO MEDS Time Seen by Provider: 04/19/17 16:38 Source of Information: Reports: Patient History Limitations: Reports: No Limitations - History of Present Illness INITIAL COMMENTS - FREE TEXT/NARRATIVE: The patient presents with an allergic reaction. She took buproprion and she now has hives and scratchy throat. She took buproprion last year and an antibiotic. It was thought she had reacted to the antibiotic and she was taken after both. Her current antidepresent was not working so they tried buproprion and now she reacted to it. She has no shortness of breath. Onset: Gradual Duration: Hour(s): Severity: Moderate Improves with: Reports: None Worsens with: Reports: None Associated Symptoms: Reports: No Other Symptoms - Related Data Allergies Allergy/AdvReac Type Severity Reaction Status Date / Time cefdinir Allergy Rash Verified 04/19/17 16:35 morphine Allergy Rash Verified 04/19/17 16:35 Penicillins Allergy Rash Verified 04/19/17 16:35 Home Meds: Home Meds Lisinopril 10 mg PO DAILY 08/20/15 [History] Esomeprazole Magnesium [Nexium] 20 mg PO DAILY 12/28/16 [History] Prednisone [IJD: predniSONE] 40 mg PO WITHBREAKFAST #10 tab 04/19/17 [Rx] buPROPion [buPROPion XL] 150 mg PO BEDTIME 04/19/17 [History] Past Medical History HEENT History: Reports: Allergic Rhinitis Cardiovascular History: Reports: Hypertension Respiratory History: Reports: Asthma Gastrointestinal History: Reports: Chronic Constipation, Diverticulosis, GERD, Hiatal Hernia, Other (See Below) Other Gastrointestinal History: bloating, gastric ulcer, nausea/vomiting Genitourinary History: Reports: Renal Calculus RN CONCURRENT REVIEW History: Reports: Endometrial Ablation, Musculoskeletal History: Reports: Fracture Other Musculoskeletal History: wrist bilat Neurological History: Reports: Migraines Psychiatric History: Reports: Anxiety, Depression - Past Surgical History Female Surgical History: Reports: Section, Endometrial Ablation Social & Family History - Family History Family Medical History: Noncontributory Cardiac: Reports: CAD, OR Other Cardiac Family History: grandfather - Tobacco Use Smoking Status *Q: Never Smoker Years of Tobacco use: 10 Used Tobacco, but Quit: Yes Month Tobacco Last Used: 12 Second Hand Smoke Exposure: No - Caffeine Use Caffeine Use: Reports: Coffee - Alcohol Use Days Per Week of Alcohol Use: 0 - Recreational Drug Use Recreational Drug Use: No Drug Use in Last 12 Months: No ED ROS ALLERGIC REACTION - Review of Systems Review Of Systems: See Below Constitutional: Reports: No Symptoms HEENT: Reports: No Symptoms Respiratory: Reports: No Symptoms Cardiovascular: Reports: No Symptoms Endocrine: Reports: No Symptoms GI/Abdominal: Reports: No Symptoms : Reports: No Symptoms Musculoskeletal: Reports: No Symptoms Skin: Reports: Urticaria ED EXAM GENERAL NO PERIP PULSE - Physical Exam Exam: See Below Exam Limited By: No Limitations General Appearance: Alert, No Apparent Distress Ears: Normal External Exam Nose: Normal Inspection Throat/Mouth: Normal Inspection Head: Atraumatic, Normocephalic Neck: Normal Inspection Respiratory/Chest: No Respiratory Distress, Lungs Clear, Normal Breath Sounds Cardiovascular: Regular Rate, Rhythm, No Edema, No Murmur GI/Abdominal: Soft, Non-Tender, No Organomegaly, No Mass Back Exam: Normal Inspection Extremities: Normal Inspection Neurological: Alert, Oriented Skin Exam: Rash (Urticaria on her left wrist, neck and right foot) Course - Vital Signs Last Recorded V/S: Last Vital Signs Temp 98.0 F 04/19/17 16:37 Pulse 108 H 04/19/17 16:37 Resp 16 04/19/17 16:37 BP 124/82 04/19/17 18:34 Pulse Ox 99 04/19/17 16:37 - Orders/Labs/Meds Meds: Medications Discontinued Medications Generic Name Dose Route Start Last Admin Trade Name Arden PRN Reason Stop Dose Admin Diphenhydramine HCl 50 mg 04/19/17 17:39 04/19/17 17:44 Benadryl PO 04/19/17 17:40 50 mg ONETIME ONE Administration Famotidine 20 mg 04/19/17 16:55 04/19/17 17:06 Pepcid PO 04/19/17 16:56 20 mg ONETIME ONE Administration Hydralazine HCl 10 mg 04/19/17 18:11 04/19/17 18:34 Apresoline PO 04/19/17 18:12 10 mg ONETIME ONE Administration Loratadine 10 mg 04/19/17 16:55 04/19/17 17:06 Claritin PO 04/19/17 16:56 10 mg ONETIME ONE Administration Prednisone 40 mg 04/19/17 16:54 04/19/17 17:06 Prednisone PO 04/19/17 16:55 40 mg ONETIME ONE Administration - Re-Assessments/Exams Free Text/Narrative Re-Assessment/Exam: 04/19/17 17:12 I ordered prednisone 40mg PO, pepcid 20mg PO, and claritin 10mg PO. 04/19/17 17:39 The itching is not much better so I will give her some benadryl 50mg by mouth. 04/19/17 19:04 She feels better. I will discharge her home. Departure - Departure Time of Disposition: 19:05 Disposition: Home, Self-Care 01 Condition: Good Clinical Impression: Allergic reaction caused by a drug Qualifiers: Encounter type: initial encounter Qualified Code(s): T78.40XA - Allergy, unspecified, initial encounter - Discharge Information Prescriptions: Prednisone [IJD: predniSONE] 40 mg PO WITHBREAKFAST #10 tab Referrals: Marichuy Byrne PA [Primary Care Provider] - 1 Week Forms: ED Department Discharge Additional Instructions: Take the prednisone 40mg daily for 5 days. Take pepcid 20mg daily for 5 days. Take benadryl 50mg every 6 hours as needed for itching. Please return if you are worse.
[2017-04-19] MEDS ORDERED: diphenhydrAMINE 50 MG Cap PO ONE (17:39)
[2017-04-19] MEDS ORDERED: hydrALAZINE 10 MG Tab PO ONE (18:11)
[2017-04-19 18:35] VITALS: BP 124/82
== END 2017-04-19 19:30 | disposition home or self-care (01) ==
LOC: JD.ED 16:14
DX: L50.0 Allergic urticaria (principal); I10 Essential (primary) hypertension; F32.9 Major depressive disorder, single episode, unspecified; Z87.891 Personal history of nicotine dependence; Z79.899 Other long term (current) drug therapy; Z88.0 Allergy status to penicillin; Z88.1 Allergy status to other antibiotic agents; Z88.5 Allergy status to narcotic agent
CPT/HCPCS: 99283; A9270